=== PATIENT | male | born 1960 | race Caucasian/White ===

== ENCOUNTER 2016-09-28 13:40 | Inpatient (IN) | payer OTHER ==
[~2016-09-28] VITALS: Ht 182.9 cm; Wt 81.6 kg
[~2016-09-28 13:40] MED LIST: ACETAMINOPHEN120 MG ORAL; ATIVAN1 MG ORAL; CATAPRES0.1 MG ORAL; FOLIC ACID1 MG ORAL; LEVOCARNITINE330 MG ORAL; MULTIVITAMINS1 EAC8 ORAL; PRILOSEC10 M1 ORAL; VITAMIN B-1100 MG ORAL; ZYPREXA2.5 MG ORAL
[2016-09-28] MEDS ORDERED: LORazepam Inj 2mg/ml 1ml IM ONE (14:00)
[2016-09-28] MEDS ORDERED: Haloperidol 5mg/ml Inj IM ONE ×2 (14:00→16:30)
[2016-09-28 14:23] LABS: APPEARANCE,URINE CLEAR; KETONES,URINE 2+ (NEGATIVE); LEUKOCYTE ESTERASE ,URINE NEGATIVE (NEGATIVE); NITRITE,URINE NEGATIVE (NEGATIVE); PH,URINE 6 (4.5-8.0); PROTEIN,URINE 3+ (NEGATIVE); UROBILINOGEN,URINE 1 MG/DL (0.0-1.0)
--- NOTE | 2016-09-28 14:26 | Emergency Room Report ---
History of Present Illness General Chief Complaint: Altered Mental Status Source: Medical Record, EMS Present Illness HPI Patient presents with altered mental status. She's agitated and violent at this nursing facility. His history of schizophrenia and depression. There is no evidence of trauma. It's unknown whether he had a seizure before presenting here. Patient admitted in March 2016. D/C 03/31 with these diagnoses: (NB - lactate was elevated at that time also) FINAL DIAGNOSES: 1. Chronic psychiatric disorder, now presenting with catatonic syndrome. 2. Possible intracranial bleed. 3. Lactic acidosis, possible sepsis. 4. Enteritis. 5. Hypertension. 6. History of alcohol abuse. 7. Old left frontoparietal lesion, probably stroke. Allergies: Coded Allergies: No Known Allergies (Unverified , 03/30/16) Patient History Past Medical History: see triage record [facility] Nursing Documentation: PMH: Agreed, PSxH: Agreed Nursing Documentation-PMH Past Medical History: No History, Except For Hx Cardiac Problems: Yes - cardiomegaly Hx Hypertension: Yes Hx Diabetes: Yes Hx Cancer: No Hx Gastrointestinal Problems: Yes - GERD History Of Psychiatric Problem: Yes - schizophrenia anxiety deprssivon Hx Neurological Problems: No Physical Exam Vital Signs Date Time Temp Pulse Resp B/P Pulse Ox O2 Delivery O2 Flow Rate FiO2 09/28/16 13:31 140 24 210/130 99 Room Air Sp02 EP Interpretation: reviewed, normal General Appearance: no apparent distress, non-toxic, mild distress, lethargic, Chronically Ill Head: normocephalic, atraumatic Eyes: bilateral eye PERRL, bilateral eye normal inspection ENT: dry mucus membranes Neck: supple, no bony tend Respiratory: chest non-tender, lungs clear, normal breath sounds Cardiovascular #1: tachycardia Cardiovascular #2: 2+ radial (R) Gastrointestinal: non tender, abnormal bowel sounds - decreased, distended Musculoskeletal: back normal, normal range of motion, pelvis stable Neurologic: motor strength/tone normal, sensory intact, no Babinski, other - screams out on occasion - disoriented Psychiatric: other Skin: other - punctate erythematous lesoins extrem and trunk Medical Decision Making Diagnostic Impression: Primary Impression: Altered level of consciousness Additional Impressions: Possibe new onset seizure Schizophrenia Qualified Codes: F20.9 - Schizophrenia, unspecified Scabies ER Course Patient with possible seizure with ALOC. DDx: seizure, electrolyte abnormality , CVA, bleed, exacerbation of schizophrenia with psychosis. Emergent evaluation with labs, EKG, CXR, CT head. Treatment with ativan and haldol needed as patient requiring restraints as combative. Treated for scabies. Elevated lactic acid. Will hydrate. Lends evidence of possible seizure. Keppra started. Improved after initial dose of Haldol and ativan. Ativan repeated to obtain CT. Had to repeat haldol due to agitation. L frontoparietal infarct = old. No bleed. As no fever and normal WBC, not starting antibiotics (lactate felt related to seizure). Blood pressure improved without direct treatment. Admit tele Dr. Amato. Laboratory Tests Test 09/28/16 14:14 09/28/16 14:15 White Blood Count 6.8 K/UL (4.8-10.8) Red Blood Count 5.43 M/UL (4.70-6.10) Hemoglobin 16.9 G/DL (14.2-18.0) Hematocrit 49.3 % (42.0-52.0) Mean Corpuscular Volume 91 FL (80-99) Mean Corpuscular Hemoglobin 31.1 PG (27.0-31.0) H Mean Corpuscular Hemoglobin Concent 34.2 G/DL (32.0-36.0) Red Cell Distribution Width 12.7 % (11.6-14.8) Platelet Count 162 K/UL (150-450) Mean Platelet Volume 7.1 FL (6.5-10.1) Neutrophils (%) (Auto) 70.1 % (45.0-75.0) Lymphocytes (%) (Auto) 17.8 % (20.0-45.0) L Monocytes (%) (Auto) 7.0 % (1.0-10.0) Eosinophils (%) (Auto) 3.8 % (0.0-3.0) H Basophils (%) (Auto) 1.3 % (0.0-2.0) Sodium Level 139 mEQ/L (135-145) Potassium Level 4.1 mEQ/L (3.4-4.9) Chloride Level 98 mEQ/L (98-107) Carbon Dioxide Level 14 mEQ/L (20-30) L Anion Gap 27 (5-15) H Blood Urea Nitrogen 17 mg/dL (7-23) Creatinine 1.2 mg/dL (0.7-1.2) Estimate Glomerular Filtration Rate > 60 mL/min (>60) Glucose Level 234 mg/dL (74-106) H Lactic Acid Level 9.00 mmol/L (0.66-2.22) H Calcium Level 9.2 mg/dL (8.6-10.2) Total Bilirubin 0.8 mg/dL (0.0-1.2) Aspartate Amino Transferase (AST) 44 U/L (5-40) H Alanine Aminotransferase (ALT) 36 U/L (3-41) Alkaline Phosphatase 73 U/L (40-129) Total Creatine Kinase 174 U/L (38-174) Creatine Kinase MB 2.5 ng/mL (< 6.7) Creatine Kinase MB Relative Index 1.4 Troponin I < 0.30 ng/mL (<=0.30) Pro-B-Type Natriuretic Peptide 163 pg/mL (0-125) H Total Protein 7.8 g/dL (6.6-8.7) Albumin 4.3 g/dL (3.5-5.2) Globulin 3.5 g/dL Albumin/Globulin Ratio 1.2 (1.0-2.7) Urine Color Yellow Urine Appearance Clear Urine pH 6 (4.5-8.0) Urine Specific [place] 1.025 (1.005-1.035) Urine Protein 3+ (NEGATIVE) H Urine Glucose (UA) Negative (NEGATIVE) Urine Ketones 2+ (NEGATIVE) H Urine Occult Blood 3+ (NEGATIVE) H Urine Nitrite Negative (NEGATIVE) Urine Bilirubin Negative (NEGATIVE) Urine Urobilinogen 1 MG/DL (0.0-1.0) H Urine Leukocyte Esterase Negative (NEGATIVE) Urine RBC 2-4 /HPF (0 - 0) H Urine WBC 0-2 /HPF (0 - 0) Urine Squamous Epithelial Cells Occasional /LPF Urine Bacteria Few /HPF (NONE) Urine Hyaline Casts 0-2 /LPF (NONE) H Urine Mucus Few /LPF (NONE/OCC) H EKG Diagnostic Results Rate: tachycardiac ST Segments: no acute changes Rhythm Strip Diag. Results EP Interpretation: yes Rhythm: no PVC's, no ectopy, other - st Chest X-Ray Diagnostic Results EP Interpretation: Yes Findings: no consolidation, no effusion, no pneumothorax, no acute cardiopulmonary disease, other - rotated film Number of Views: 1 CT/MRI/US Diagnostic Results CT/MRI/US Diagnostic Results : Imaging Test Ordered: head Impression L frontoparietal old infarct Last Vital Signs Date Time Temp Pulse Resp B/P Pulse Ox O2 Delivery O2 Flow Rate FiO2 09/28/16 14:41 97.6 111 16 146/92 99 Room Air Status: improved Disposition: ADMITTED INPATIENT Condition: Serious Referrals: KARL ST (PCP) Justen Otto M.D. Sep 28, 2016 14:25
[2016-09-28 14:36] LABS: BACTERIA,URINE FEW /HPF; HYALINE CASTS, URINE 0-2 /LPF; MUCUS,URINE FEW /LPF (NONE/OCC); SQUAMOUS EPITHELIAL CELL,UR OCCASIONAL /LPF (NONE/OCC); WBC,URINE 0-2 /HPF (0 - 0)
[2016-09-28 14:41] VITALS: BP 146/92
[2016-09-28 14:49] LABS: BASOPHILS % (AUTO) 1.3 % (0.0-2.0); EOSINOPHILS % (AUTO) 3.8 % (0.0-3.0); LYMPHOCYTES % (AUTO) 17.8 % (20.0-45.0); MEAN CORPUSCULAR HEMOGLOBIN 31.1 PG (27.0-31.0); MEAN CORPUSCULAR HGB CONC 34.2 G/DL (32.0-36.0); MEAN CORPUSCULAR VOLUME 91 FL (80-99); MEAN PLATELET VOLUME 7.1 FL (6.5-10.1); NEUTROPHILS % (AUTO) 70.1 % (45.0-75.0); PLATELET COUNT 162 K/UL (150-450); RED BLOOD COUNT 5.43 M/UL (4.70-6.10); RED CELL DISTRIBUTION WIDTH 12.7 % (11.6-14.8); WHITE BLOOD COUNT 6.8 K/UL (4.8-10.8)
[2016-09-28 15:07] LABS: TROPONIN I < 0.30 ng/mL (<=0.30)
--- NOTE | 2016-09-28 15:09 | Diagnostic Imaging Report ---
Indication: Chest Pain Comparison: 03/30/16 A single view chest radiograph was obtained. Findings: No infiltrates are seen. Lungs are low in volume. Heart is enlarged. Bones are osteopenic. Impression: No acute disease
[2016-09-28 15:10] LABS: ALANINE AMINOTRANSFERASE 36 U/L (3-41); ALBUMIN/GLOBULIN RATIO 1.2 (1.0-2.7); ANION GAP 27 (5-15); ASPARTATE AMINO TRANSFERASE 44 U/L (5-40); CALCIUM 9.2 mg/dL (8.6-10.2); CARBON DIOXIDE 14 mEQ/L (20-30); CHLORIDE 98 mEQ/L (98-107); CREATININE 1.2 mg/dL (0.7-1.2); GLOMERULAR FILTRATION RATE > 60 mL/min (>60); HEMOLYSIS 52; POTASSIUM 4.1 mEQ/L (3.4-4.9); SODIUM 139 mEQ/L (135-145); TOTAL PROTEIN 7.8 g/dL (6.6-8.7)
[2016-09-28] MEDS ORDERED: LORazepam Inj 2mg/ml 1ml IV ONE (15:15)
[2016-09-28] MEDS ORDERED: levETIRAcetam 500 MG in D5W 110 ML IVPB ONE (15:15)
[2016-09-28 15:20] LABS: CKMB 2.5 ng/mL (< 6.7)
[2016-09-28 15:27] LABS: REFLEX LACTIC ACID YES OR NO YES
[2016-09-28] MEDS ORDERED: levETIRAcetam 500mg vial IV ONE (16:06)
--- NOTE | 2016-09-28 16:54 | Diagnostic Imaging Report ---
Indication: Altered mental status Technique: Contiguous 5 mm thick transaxial imaging of the head obtained in a Siemens Sensation [address] scanner. Soft tissue and bone windows generated. Total Dose length Product (DLP): [address] Dose Index Volume (CTDIvol): 70.38 mGy Comparison: 03-31-16 Findings: Motion artifact limits evaluation. There is encephalomalacia in the left frontal lobe and left external capsule/temporal lobe. This was noted previously and appears unchanged and is consistent with old infarct. There is moderate prominence of the ventricles, basal cisterns, and cerebral sulci consistent with atrophy. Moderate, nonspecific, white matter hypoattenuation is noted throughout the brain consistent with chronic small vessel disease. There is no midline shift, edema, acute hemorrhage, mass effect, or abnormal extra-axial fluid collections. Bones and extra osseous soft tissues are unremarkable. Impression: Significantly limited study due to motion. Old left frontal and temporal region infarcts. No acute intracranial bleed, mass effect or edema. Moderate atrophy of the brain. Evidence of chronic small vessel disease involving white matter tracts. The CT scanner at [facility] is accredited by the [employer] and the scans are performed using protocols designed to limit radiation exposure to as low as reasonably achievable to attain images of sufficient resolution adequate for diagnostic evaluation.
[2016-09-28 17:54] VITALS: BP 156/87
[2016-09-28 20:00] VITALS: BP 148/68
[2016-09-28] MEDS ORDERED: LORazepam Inj 2mg/ml 1ml IV PRN (22:45)
[2016-09-28] MEDS ORDERED: Zolpidem 5mg tab ORAL PRN (22:45)
[2016-09-28] MEDS ORDERED: Miralax 17gm pkt ORAL PRN (22:45)
[2016-09-28] MEDS ORDERED: Mylanta II UD 30ml ORAL PRN (22:45)
[2016-09-28] MEDS ORDERED: Morphine Sulfate 2mg/ml Inj IVP PRN (22:45)
[2016-09-29] MEDS ORDERED: LORazepam Inj 2mg/ml 1ml IV PRN (00:30)
[2016-09-29 02:02] VITALS: BP 169/82
[2016-09-29 02:30] VITALS: BP 152/80
[2016-09-29 07:52] VITALS: BP 127/91
[2016-09-29 08:39] LABS: BASOPHILS % (AUTO) 0.9 % (0.0-2.0); EOSINOPHILS % (AUTO) 1.6 % (0.0-3.0); LYMPHOCYTES % (AUTO) 12.6 % (20.0-45.0); MEAN CORPUSCULAR HEMOGLOBIN 31.3 PG (27.0-31.0); MEAN CORPUSCULAR HGB CONC 34.4 G/DL (32.0-36.0); MEAN CORPUSCULAR VOLUME 91 FL (80-99); MEAN PLATELET VOLUME 7.4 FL (6.5-10.1); MONOCYTES % (AUTO) 10.8 % (1.0-10.0); NEUTROPHILS % (AUTO) 74.2 % (45.0-75.0); PLATELET COUNT 129 K/UL (150-450); RED BLOOD COUNT 5.18 M/UL (4.70-6.10); RED CELL DISTRIBUTION WIDTH 12.5 % (11.6-14.8); WHITE BLOOD COUNT 7.1 K/UL (4.8-10.8)
[2016-09-29] MEDS ORDERED: Thiamine 100mg tab ORAL SCH (09:00)
[2016-09-29] MEDS ORDERED: OLANZapine 2.5mg tab ORAL SCH (09:00)
[2016-09-29] MEDS: levOCARNitine 330mg tab ORAL SCH ×3 (09:13→17:37)
[2016-09-29] MEDS: Heparin 5000 units/ml inj SUBQ SCH ×2 (09:13→21:00)
[2016-09-29 09:14] LABS: ALANINE AMINOTRANSFERASE 34 U/L (3-41); ALBUMIN/GLOBULIN RATIO 1.1 (1.0-2.7); ANION GAP 16 (5-15); ASPARTATE AMINO TRANSFERASE 38 U/L (5-40); CALCIUM 8.7 mg/dL (8.6-10.2); CARBON DIOXIDE 25 mEQ/L (20-30); CHLORIDE 102 mEQ/L (98-107); CREATININE 0.8 mg/dL (0.7-1.2); GLOMERULAR FILTRATION RATE > 60 mL/min (>60); HEMOLYSIS 7; POTASSIUM 3.9 mEQ/L (3.4-4.9); SODIUM 143 mEQ/L (135-145); TOTAL PROTEIN 7.2 g/dL (6.6-8.7)
[2016-09-29 09:40] LABS: BILIRUBIN,DIRECT 0.3 mg/dL (0.1-0.3)
[2016-09-29 11:33] VITALS: BP 103/70
--- NOTE | 2016-09-29 11:52 | Neurology Progress Note ---
Interim History Interim History ROS Limited/Unobtainable: No Objective Physical Exam Last Vital Signs Date Time Temp Pulse Resp B/P Pulse Ox O2 Delivery O2 Flow Rate FiO2 09/29/16 11:33 96.4 66 17 103/70 98 Room Air Laboratory Tests Test 09/28/16 14:14 09/28/16 14:15 09/28/16 18:17 09/29/16 08:02 White Blood Count 6.8 K/UL (4.8-10.8) 7.1 K/UL (4.8-10.8) Red Blood Count 5.43 M/UL (4.70-6.10) 5.18 M/UL (4.70-6.10) Hemoglobin 16.9 G/DL (14.2-18.0) 16.2 G/DL (14.2-18.0) Hematocrit 49.3 % (42.0-52.0) 47.1 % (42.0-52.0) Mean Corpuscular Volume 91 FL (80-99) 91 FL (80-99) Mean Corpuscular Hemoglobin 31.1 PG (27.0-31.0) H 31.3 PG (27.0-31.0) H Mean Corpuscular Hemoglobin Concent 34.2 G/DL (32.0-36.0) 34.4 G/DL (32.0-36.0) Red Cell Distribution Width 12.7 % (11.6-14.8) 12.5 % (11.6-14.8) Platelet Count 162 K/UL (150-450) 129 K/UL (150-450) L Mean Platelet Volume 7.1 FL (6.5-10.1) 7.4 FL (6.5-10.1) Neutrophils (%) (Auto) 70.1 % (45.0-75.0) 74.2 % (45.0-75.0) Lymphocytes (%) (Auto) 17.8 % (20.0-45.0) L 12.6 % (20.0-45.0) L Monocytes (%) (Auto) 7.0 % (1.0-10.0) 10.8 % (1.0-10.0) H Eosinophils (%) (Auto) 3.8 % (0.0-3.0) H 1.6 % (0.0-3.0) Basophils (%) (Auto) 1.3 % (0.0-2.0) 0.9 % (0.0-2.0) Sodium Level 139 mEQ/L (135-145) 143 mEQ/L (135-145) Potassium Level 4.1 mEQ/L (3.4-4.9) 3.9 mEQ/L (3.4-4.9) Chloride Level 98 mEQ/L (98-107) 102 mEQ/L (98-107) Carbon Dioxide Level 14 mEQ/L (20-30) L 25 mEQ/L (20-30) Anion Gap 27 (5-15) H 16 (5-15) H Blood Urea Nitrogen 17 mg/dL (7-23) 7 mg/dL (7-23) Creatinine 1.2 mg/dL (0.7-1.2) 0.8 mg/dL (0.7-1.2) Estimat Glomerular Filtration Rate > 60 mL/min (>60) > 60 mL/min (>60) Glucose Level 234 mg/dL (74-106) H 118 mg/dL (74-106) #H Lactic Acid Level 9.00 mmol/L (0.66-2.22) H 2.30 mmol/L (0.66-2.22) H Calcium Level 9.2 mg/dL (8.6-10.2) 8.7 mg/dL (8.6-10.2) Total Bilirubin 0.8 mg/dL (0.0-1.2) 1.3 mg/dL (0.0-1.2) H Aspartate Amino Transf (AST/SGOT) 44 U/L (5-40) H 38 U/L (5-40) Alanine Aminotransferase (ALT/SGPT) 36 U/L (3-41) 34 U/L (3-41) Alkaline Phosphatase 73 U/L (40-129) 60 U/L (40-129) Total Creatine Kinase 174 U/L (38-174) Creatine Kinase MB 2.5 ng/mL (< 6.7) Creatine Kinase MB Relative Index 1.4 Troponin I < 0.30 ng/mL (<=0.30) Pro-B-Type Natriuretic Peptide 163 pg/mL (0-125) H Total Protein 7.8 g/dL (6.6-8.7) 7.2 g/dL (6.6-8.7) Albumin 4.3 g/dL (3.5-5.2) 3.9 g/dL (3.5-5.2) Globulin 3.5 g/dL 3.3 g/dL Albumin/Globulin Ratio 1.2 (1.0-2.7) 1.1 (1.0-2.7) Urine Color Yellow Urine Appearance Clear Urine pH 6 (4.5-8.0) Urine Specific [place] 1.025 (1.005-1.035) Urine Protein 3+ (NEGATIVE) H Urine Glucose (UA) Negative (NEGATIVE) Urine Ketones 2+ (NEGATIVE) H Urine Occult Blood 3+ (NEGATIVE) H Urine Nitrite Negative (NEGATIVE) Urine Bilirubin Negative (NEGATIVE) Urine Urobilinogen 1 MG/DL (0.0-1.0) H Urine Leukocyte Esterase Negative (NEGATIVE) Urine RBC 2-4 /HPF (0 - 0) H Urine WBC 0-2 /HPF (0 - 0) Urine Squamous Epithelial Cells Occasional /LPF Urine Bacteria Few /HPF (NONE) Urine Hyaline Casts 0-2 /LPF (NONE) H Urine Mucus Few /LPF (NONE/OCC) H Direct Bilirubin 0.3 mg/dL (0.1-0.3) Impression/Recommendations Problems: (1) Hypertensive urgency (2) r/o seizure disorder (3) s/p multiple hemorrhagic strokes, 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
[2016-09-29] MEDS ORDERED: OLANZapine 2.5mg tab ORAL PRN (11:55)
[2016-09-29 13:09] LABS: BILIRUBIN,DIRECT 0.4 mg/dL (0.1-0.3); CHOLESTEROL/HDL RATIO 2.1 (3.3-4.4); TOTAL PROTEIN 6.7 g/dL (6.6-8.7)
--- NOTE | 2016-09-29 13:45 | History and Physical ---
History of Present Illness General Date patient seen: Sep 29, 2016 Reason for Hospitalization: Altered Mental Status Present Illness HPI 56 year old male with psychiatric disorder, old subdural hematoma, alf resident, brought in by paramedics for ALOC. Pt was more lethargic. Allergies: Coded Allergies: No Known Allergies (Unverified , 03/30/16) Medication History Scheduled Clonidine Hcl* (Catapres*), 0.1 MG ORAL EVERY 6 HOURS, (Reported) Folic Acid* (Folic Acid*), 1 MG ORAL DAILY, (Reported) Levocarnitine (Levocarnitine), 990 MG ORAL THREE TIMES A DAY, (Reported) Lorazepam* (Ativan*), 1 MG ORAL BEDTIME, (Reported) Multivitamin With Minerals (Multivitamins With Minerals*), 1 TAB ORAL DAILY, ( Reported) Olanzapine* (Zyprexa*), 2.5 MG ORAL DAILY, (Reported) Omeprazole Magnesium (Prilosec), 20 MG ORAL DAILY, (Reported) Thiamine Hcl* (Vitamin B-1*), 100 MG ORAL DAILY, (Reported) Scheduled PRN Acetaminophen* (Tylenol*), 650 MG ORAL Q4H PRN for Mild Pain/Temp > 100.5, ( Reported) Patient History Healthcare decision maker Resuscitation status Full Code Advanced Directive on File Past Medical/Surgical History Past Medical/Surgical History: (1) Schizophrenia (2) SDH (subdural hematoma) Review of Systems All Other Systems: negative except mentioned in HPI Physical Exam General Appearance: WD/WN, no apparent distress, lethargic Lines, tubes and drains: central line HEENT: normocephalic, atraumatic Neck: non-tender, normal alignment Respiratory/Chest: chest wall non-tender, lungs clear Cardiovascular/Chest: normal peripheral pulses, normal rate Abdomen: normal bowel sounds Last 24 Hour Vital Signs Date Time Temp Pulse Resp B/P Pulse Ox O2 Delivery O2 Flow Rate FiO2 09/29/16 11:33 96.4 66 17 103/70 98 Room Air 09/29/16 09:00 78 09/29/16 07:52 96.6 83 18 127/91 98 Room Air 09/29/16 06:08 168/83 09/29/16 04:00 77 09/29/16 02:30 152/80 09/29/16 02:02 97.8 79 20 169/82 95 Room Air 09/29/16 00:25 169/82 09/29/16 00:00 87 09/28/16 20:00 97.0 86 16 148/68 98 Room Air 09/28/16 18:40 97.8 91 15 156/87 99 Room Air 09/28/16 17:54 97.8 91 15 156/87 99 Room Air 09/28/16 14:41 97.6 111 16 146/92 99 Room Air Intake and Output 09/28/16 09/29/16 19:00 07:00 Intake Total 2515 ml 0 ml Output Total 1200 ml Balance 2515 ml -1200 ml Intake Oral 0 ml IV Total 1515 ml Other 1000 ml Output Urine Total 1200 ml Laboratory Tests Test 09/28/16 14:14 09/28/16 14:15 09/28/16 18:17 09/29/16 08:02 White Blood Count 6.8 K/UL (4.8-10.8) 7.1 K/UL (4.8-10.8) Red Blood Count 5.43 M/UL (4.70-6.10) 5.18 M/UL (4.70-6.10) Hemoglobin 16.9 G/DL (14.2-18.0) 16.2 G/DL (14.2-18.0) Hematocrit 49.3 % (42.0-52.0) 47.1 % (42.0-52.0) Mean Corpuscular Volume 91 FL (80-99) 91 FL (80-99) Mean Corpuscular Hemoglobin 31.1 PG (27.0-31.0) H 31.3 PG (27.0-31.0) H Mean Corpuscular Hemoglobin Concent 34.2 G/DL (32.0-36.0) 34.4 G/DL (32.0-36.0) Red Cell Distribution Width 12.7 % (11.6-14.8) 12.5 % (11.6-14.8) Platelet Count 162 K/UL (150-450) 129 K/UL (150-450) L Mean Platelet Volume 7.1 FL (6.5-10.1) 7.4 FL (6.5-10.1) Neutrophils (%) (Auto) 70.1 % (45.0-75.0) 74.2 % (45.0-75.0) Lymphocytes (%) (Auto) 17.8 % (20.0-45.0) L 12.6 % (20.0-45.0) L Monocytes (%) (Auto) 7.0 % (1.0-10.0) 10.8 % (1.0-10.0) H Eosinophils (%) (Auto) 3.8 % (0.0-3.0) H 1.6 % (0.0-3.0) Basophils (%) (Auto) 1.3 % (0.0-2.0) 0.9 % (0.0-2.0) Sodium Level 139 mEQ/L (135-145) 143 mEQ/L (135-145) Potassium Level 4.1 mEQ/L (3.4-4.9) 3.9 mEQ/L (3.4-4.9) Chloride Level 98 mEQ/L (98-107) 102 mEQ/L (98-107) Carbon Dioxide Level 14 mEQ/L (20-30) L 25 mEQ/L (20-30) Anion Gap 27 (5-15) H 16 (5-15) H Blood Urea Nitrogen 17 mg/dL (7-23) 7 mg/dL (7-23) Creatinine 1.2 mg/dL (0.7-1.2) 0.8 mg/dL (0.7-1.2) Estimat Glomerular Filtration Rate > 60 mL/min (>60) > 60 mL/min (>60) Glucose Level 234 mg/dL (74-106) H 118 mg/dL (74-106) #H Lactic Acid Level 9.00 mmol/L (0.66-2.22) H 2.30 mmol/L (0.66-2.22) H Calcium Level 9.2 mg/dL (8.6-10.2) 8.7 mg/dL (8.6-10.2) Total Bilirubin 0.8 mg/dL (0.0-1.2) 1.3 mg/dL (0.0-1.2) H Aspartate Amino Transf (AST/SGOT) 44 U/L (5-40) H 38 U/L (5-40) Alanine Aminotransferase (ALT/SGPT) 36 U/L (3-41) 34 U/L (3-41) Alkaline Phosphatase 73 U/L (40-129) 60 U/L (40-129) Total Creatine Kinase 174 U/L (38-174) Creatine Kinase MB 2.5 ng/mL (< 6.7) Creatine Kinase MB Relative Index 1.4 Troponin I < 0.30 ng/mL (<=0.30) Pro-B-Type Natriuretic Peptide 163 pg/mL (0-125) H Total Protein 7.8 g/dL (6.6-8.7) 7.2 g/dL (6.6-8.7) Albumin 4.3 g/dL (3.5-5.2) 3.9 g/dL (3.5-5.2) Globulin 3.5 g/dL 3.3 g/dL Albumin/Globulin Ratio 1.2 (1.0-2.7) 1.1 (1.0-2.7) Urine Color Yellow Urine Appearance Clear Urine pH 6 (4.5-8.0) Urine Specific [place] 1.025 (1.005-1.035) Urine Protein 3+ (NEGATIVE) H Urine Glucose (UA) Negative (NEGATIVE) Urine Ketones 2+ (NEGATIVE) H Urine Occult Blood 3+ (NEGATIVE) H Urine Nitrite Negative (NEGATIVE) Urine Bilirubin Negative (NEGATIVE) Urine Urobilinogen 1 MG/DL (0.0-1.0) H Urine Leukocyte Esterase Negative (NEGATIVE) Urine RBC 2-4 /HPF (0 - 0) H Urine WBC 0-2 /HPF (0 - 0) Urine Squamous Epithelial Cells Occasional /LPF Urine Bacteria Few /HPF (NONE) Urine Hyaline Casts 0-2 /LPF (NONE) H Urine Mucus Few /LPF (NONE/OCC) H Direct Bilirubin 0.3 mg/dL (0.1-0.3) Test 09/29/16 12:00 Total Bilirubin 1.3 mg/dL (0.0-1.2) H Direct Bilirubin 0.4 mg/dL (0.1-0.3) H Aspartate Amino Transf (AST/SGOT) 35 U/L (5-40) Alanine Aminotransferase (ALT/SGPT) 32 U/L (3-41) Alkaline Phosphatase 59 U/L (40-129) Ammonia 22 umol/L (16-60) Total Protein 6.7 g/dL (6.6-8.7) Albumin 4.0 g/dL (3.5-5.2) Triglycerides Level 37 mg/dL (< 150) Cholesterol Level 119 mg/dL (< 200) LDL Cholesterol 55 mg/dL (60-99) L HDL Cholesterol 57 mg/dL (> 60) Cholesterol/HDL Ratio 2.1 (3.3-4.4) L Vitamin B12 Level 406 pg/mL (211-946) Height (Feet): 6 Weight (Pounds): 180 Medications Current Medications Medications (Trade) Dose Ordered Sig/Lennie Route PRN Reason Start Time Stop Time Status Last Admin Dose Admin Acetaminophen (Tylenol) 650 mg Q4H PRN ORAL fever 09/28/16 22:45 10/28/16 22:44 Al Hydroxide/Mg Hydroxide (Mylanta II) 30 ml Q6H PRN ORAL dyspepsia 09/28/16 22:45 10/28/16 22:44 Clonidine HCl (Catapres) 0.1 mg EVERY 6 HOURS ORAL 09/29/16 00:00 10/29/16 00:00 09/29/16 06:08 Dextrose (Dextrose 50%) STAT PRN IV Hypoglycemia 09/28/16 22:45 10/28/16 22:44 Folic Acid (Folate) 1 mg DAILY ORAL 09/29/16 09:00 10/29/16 08:59 09/29/16 09:14 Heparin Sodium (Porcine) (Heparin 5000 units/ml) 5,000 units EVERY 12 HOURS SUBQ 09/29/16 09:00 10/29/16 08:59 09/29/16 09:13 Levetiracetam (Keppra) 500 mg Q12HR ORAL 09/29/16 12:30 10/29/16 12:29 09/29/16 12:39 Levocarnitine (L-Carnitine) 990 mg THREE TIMES A DAY ORAL 09/29/16 09:00 10/29/16 08:59 09/29/16 12:39 Lorazepam (Ativan 2mg/ml 1ml) 2 mg EVERY HOUR PRN IV seizures 09/28/16 22:45 10/05/16 22:44 Lorazepam (Ativan 2mg/ml 1ml) 2 mg Q4H PRN IV Agitation 09/29/16 00:30 10/06/16 00:29 09/29/16 01:18 Morphine Sulfate (Morphine Sulfate) 1 mg Q4H PRN IVP For Pain 09/28/16 22:45 10/05/16 22:44 Olanzapine (ZyPREXA) 2.5 mg DAILY PRN ORAL Agitation 09/29/16 11:55 10/29/16 11:54 Ondansetron HCl (Zofran) 4 mg Q6H PRN IVP Nausea & Vomiting 09/28/16 22:45 10/28/16 22:44 Polyethylene Glycol (Miralax) 17 gm HSPRN PRN ORAL Constipation 09/28/16 22:45 10/28/16 22:44 Zolpidem Tartrate (Ambien) 5 mg HSPRN PRN ORAL Insomnia 09/28/16 22:45 10/28/16 22:44 09/29/16 00:25 Assessment/Plan Problem List: (1) Hypertensive urgency ICD Codes: I16.0 - Hypertensive urgency SNOMED: 622459365 (2) Altered level of consciousness ICD Codes: R40.4 - Transient alteration of awareness SNOMED: 3068363 (3) SDH (subdural hematoma) ICD Codes: I62.00 - Nontraumatic subdural hemorrhage, unspecified SNOMED: 91086047 (4) Schizophrenia ICD Codes: F20.9 - Schizophrenia, unspecified SNOMED: 40853172 Assessment/Plan monitor bp neuro evaluation adjust psych meds. pts sister, DPOA, wants DNR. CHRISTO ARMENDARIZ Sep 29, 2016 13:45
--- NOTE | 2016-09-29 13:51 | Cardiology Report ---
APPROVED REPORT EKG Measurement Heart [id number] Sinus tachycardia Septal infarct, age undetermined Abnormal ECG
[2016-09-29 16:00] VITALS: BP 108/70
[2016-09-29] MEDS: NovoLOG Insulin Flexpen SUBQ SCH ×2 (16:30→21:00)
[2016-09-29 20:00] VITALS: BP 110/72
--- NOTE | 2016-09-29 23:29 | Consultation ---
DATE OF CONSULTATION: 09/29/2016 NEUROLOGICAL CONSULTATION CONSULTING PHYSICIAN: Malcolm Wayne M.D. REQUESTING PHYSICIAN: Deni Amato M.D. HISTORY OF PRESENT ILLNESS: The patient is a 56 years old man, resident of a nursing facility, was seen in neurological consultation to evaluate changes in mental status. The patient has reportedly developed increased agitation, displaying violent behavior, at which point, paramedics were called to the scene, describing with shaking, but coming down after loading into ambulance. He was , hypertensive with no evidence of trauma noted. His vital signs included blood pressure 218/139, heart rate of 130, respirations 18, and blood sugar was 170. Repeat study, blood pressure down to 200/100 and heart rate of 147. Upon arrival to the emergency [place], he remained hypertensive and tachycardic and treatment started. Blood pressure back to normal with 146/92. The patient's laboratory studies included CBC study with 3+ protein, 2+ ketones. Chemistry panel was abnormal with anion gap of 27, blood sugar 234, elevated lactic acid 9.0, and BNP 163. CBC study were unremarkable. Imaging studies included a chest x-ray revealed no acute disease, but CT of the brain revealed old left frontal and temporal region infarct, moderate prominence of ventricles consistent with atrophy, and moderate white matter hypoattenuation. This was compared with the previous study from 03/31/2016 with no changes noted. Following admission to present, the patient described as very lethargic and nonresponsive. Most recent assessment at this hospital was in March of 2016, when patient was also admitted with high blood pressure out of control and tachycardia. The patient described being in catatonic state. He was rehydrated. MRI of the brain was obtained, revealing chronic encephalomalacia, parenchymal volume loss in the left hemisphere with evidence of hemosiderin deposits indicating prior hemorrhagic component. There is no evidence of subdural hematoma or any evidence of acute intracranial pathology. PAST MEDICAL HISTORY: The patient has a history of chronic psychiatric disorder, schizophrenia, and history of alcohol abuse. MEDICATIONS: The patient's current treatment prior to admission included Tylenol, clonidine, folate, Ativan 1 mg at bedtime, Zyprexa 2.5 mg daily, omeprazole, and thiamine. ALLERGIES: None reported. SOCIAL HISTORY: Resident of nursing facility. FAMILY HISTORY: Noncontributory. REVIEW OF SYMPTOMS: Unable to obtain due to the patient's status. PHYSICAL EXAMINATION: GENERAL: This is a well-developed, well-nourished, somewhat ill-appearing man, who was found to be lying in bed, asleep. VITAL SIGNS: Included blood pressure 127/91, temperature 96.8, and heart rate of 83. HEENT: Head, normocephalic. There is no evidence of trauma. SKIN: Revealed disseminated rash resembling scabies. MUSCULOSKELETAL: Unremarkable. Peripheral pulses 1+ and symmetric. MENTAL STATUS: The patient is lethargic, would not wake up unless vigorously stimulated, at which point he would open eyes, but would not follow commands and remained nonverbal. CRANIAL NERVE II: Pupils both responding to light and accommodation. Extraocular movements intact. No nystagmus. CRANIAL NERVE V: Normal corneal responses. CRANIAL NERVE VII: No facial asymmetry. CRANIAL NERVE VIII: Probable normal. CRANIAL NERVE IX THROUGH XII: Reduced gag response. MOTOR EXAMINATION: Diffuse rigidity with strength 5/5 in all limbs. Deep tendon reflexes 1+ and symmetric. Plantar responses flexor. SENSORY EXAMINATION: No response to pin stimulation. Gait not tested. IMPRESSION: 1. This is a 56-year-old man, admitted with hypertensive urgency, presenting with a persistent encephalopathy. 2. Status post multiple predominantly left hemispheric strokes some with hemorrhagic component, old. 3. Chronic psychiatric disorder. 4. Lactic acidosis, rule out sepsis. 5. Rash, probably scabies. DISCUSSION: 1. The patient has no lateralizing evidence, but has a persistent lethargy following admission to the hospital with evidence of hypertensive urgency. His vital signs stabilized, but the patient remained verbal and unresponsive. He has evidence of lactic acidosis. Elevated total bilirubin and AST. Underlying sepsis, hepatic dysfunction to be considered. 2. Blood and urine cultures are pending. Liver function and ammonia level ordered. B12, folate, vitamin D levels ordered. 3. Psychiatry evaluation to assist with chronic psychiatric illness management. Meanwhile, we will hold all sedating medication until fully awake. Continue with aspirin 81 mg, statins given high risk of strokes. Thank you for allowing me to see this interesting patient in neurological consultation. Malcolm Wayne M.D. DR: LONNIE JOB#: [id number] CC:
[2016-09-30] VITALS: BP 106/66
[2016-09-30 04:00] VITALS: BP 101/68
[2016-09-30] MEDS: NovoLOG Insulin Flexpen SUBQ SCH ×4 (06:30→22:01)
[2016-09-30 07:47] VITALS: BP 106/66
[2016-09-30] MEDS ORDERED: Mylanta II UD 30ml ORAL PRN (09:00)
[2016-09-30] MEDS ORDERED: Morphine Sulfate 2mg/ml Inj IVP PRN (09:00)
[2016-09-30] MEDS ORDERED: LORazepam Inj 2mg/ml 1ml IV PRN ×2 (09:00)
[2016-09-30] MEDS ORDERED: OLANZapine 2.5mg tab ORAL PRN (09:00)
[2016-09-30] MEDS: Heparin 5000 units/ml inj SUBQ SCH ×2 (09:00→21:00)
[2016-09-30] MEDS: levOCARNitine 330mg tab ORAL SCH ×3 (09:59→17:27)
[2016-09-30 12:55] VITALS: BP 110/62
[2016-09-30 15:55] VITALS: BP 108/60
--- NOTE | 2016-09-30 16:41 | Pulmonology Progress Note ---
Assessment/Plan Assessment/Plan ASSESSMENT acute encephalopathy, r/o seizure disorder HTN urgency schizophrenia hx of multiple hemorrhagic strokes, probably HTN angiopathy scabies, s/p Rx lactic acidosis PLAN OF CARE MS floor CT head c/w old CVA, no acute intracranial pathology CXR negative O2 HHN prn BP management neuro follows carotid Doppler EEG started ion Keppra ammonia level OK lipid panel stable DVT prophylaxis s/ Rx with permethrin and repeat in 7 days BS management with SS of insulin PT/OT f fall precautions swallow eval case discussed and evaluated by supervising physician Subjective Allergies: Coded Allergies: No Known Allergies (Unverified , 03/30/16) Subjective transferred to NM no seizure activity, no new weakness/deficit Objective Last 24 Hour Vital Signs Date Time Temp Pulse Resp B/P Pulse Ox O2 Delivery O2 Flow Rate FiO2 09/30/16 15:55 97.7 64 18 108/60 96 Room Air 09/30/16 12:55 97.9 62 18 110/62 96 Room Air 09/30/16 07:47 98.0 84 20 106/66 96 Room Air 09/30/16 06:00 101/68 09/30/16 04:00 98.1 56 20 101/68 95 Room Air 09/30/16 00:00 106/66 09/30/16 00:00 98.2 65 20 106/66 95 Room Air 09/29/16 20:00 74 09/29/16 20:00 97.6 75 20 110/72 96 09/29/16 17:37 115/70 Intake and Output 09/29/16 09/30/16 19:00 07:00 Intake Total 250 ml 200 ml Output Total 200 ml 200 ml Balance 50 ml 0 ml Intake Oral 250 ml 200 ml Output Urine Total 200 ml 200 ml Respiratory/Chest: lungs clear, normal breath sounds, no respiratory distress Cardiovascular: normal rate, regular rhythm Abdomen: soft, non tender, non distended Genitourinary: normal external genitalia Extremities: no edema Neurologic/Psychiatric: alert - confused, responsive but inadequate Musculoskeletal: normal muscle bulk Microbiology Date/Time Source Procedure Growth Status 09/28/16 14:24 Blood Blood Culture - Preliminary NO GROWTH AFTER 24 HOURS Resulted 09/28/16 14:14 Blood Blood Culture - Preliminary NO GROWTH AFTER 24 HOURS Resulted 09/28/16 20:30 Nasal Nares MRSA Culture - Final NO METHICILLIN RESISTANT STAPH AUREUS... Complete 09/28/16 20:30 Rectum VRE Culture - Final NO VANCOMYCIN RESISTANT ENTEROCOCCUS ... Complete Current Medications Medications (Trade) Dose Ordered Sig/Lennie Route PRN Reason Start Time Stop Time Status Last Admin Dose Admin Acetaminophen (Tylenol) 650 mg Q4H PRN ORAL fever 09/30/16 09:00 10/30/16 08:59 Al Hydroxide/Mg Hydroxide (Mylanta II) 30 ml Q6H PRN ORAL dyspepsia 09/30/16 09:00 10/30/16 08:59 Clonidine HCl (Catapres) 0.1 mg Q6H PRN ORAL SBP greater than 160 09/30/16 09:00 10/30/16 08:59 Dextrose (Dextrose 50%) STAT PRN IV Hypoglycemia 09/30/16 09:00 10/30/16 08:59 Folic Acid (Folate) 1 mg DAILY ORAL 09/30/16 09:00 10/30/16 08:59 09/30/16 09:58 Heparin Sodium (Porcine) (Heparin 5000 units/ml) 5,000 units EVERY 12 HOURS SUBQ 09/30/16 09:00 10/30/16 08:59 Insulin Aspart (NovoLOG) BEFORE MEALS AND HS SUBQ 09/30/16 11:30 10/30/16 11:29 09/30/16 14:35 Levetiracetam (Keppra) 500 mg Q12HR ORAL 09/30/16 09:00 10/30/16 08:59 09/30/16 09:58 Levocarnitine (L-Carnitine) 990 mg THREE TIMES A DAY ORAL 09/30/16 09:00 10/30/16 08:59 09/30/16 14:35 Lorazepam (Ativan 2mg/ml 1ml) 2 mg Q1H PRN IV seizures 09/30/16 09:00 10/07/16 08:59 Lorazepam (Ativan 2mg/ml 1ml) 2 mg Q4H PRN IV Agitation 09/30/16 09:00 10/07/16 08:59 Morphine Sulfate (Morphine Sulfate) 1 mg Q4H PRN IVP For Pain 09/30/16 09:00 10/07/16 08:59 Olanzapine (ZyPREXA) 2.5 mg DAILYPRN PRN ORAL Agitation 09/30/16 09:00 10/30/16 08:59 Ondansetron HCl (Zofran) 4 mg Q6H PRN IVP Nausea & Vomiting 09/30/16 09:00 10/30/16 08:59 Polyethylene Glycol (Miralax) 17 gm HSPRN PRN ORAL Constipation 09/30/16 22:45 10/30/16 22:44 Zolpidem Tartrate (Ambien) 5 mg HSPRN PRN ORAL Insomnia 09/30/16 22:45 10/30/16 22:44 Naz Sharpe NP (Vanchtein) Sep 30, 2016 16:41
[2016-09-30 20:00] VITALS: BP 141/76
[2016-09-30] MEDS ORDERED: Miralax 17gm pkt ORAL PRN (22:45)
[2016-09-30] MEDS ORDERED: Zolpidem 5mg tab ORAL PRN (22:45)
[2016-09-30] MEDS: LORazepam Inj 2mg/ml 1ml IV PRN (23:55)
[2016-10-01] VITALS: BP 131/88
[2016-10-01] MEDS: NovoLOG Insulin Flexpen SUBQ SCH ×4 (06:28→21:36)
[2016-10-01 08:00] VITALS: BP 151/97
[2016-10-01] MEDS: Heparin 5000 units/ml inj SUBQ SCH ×2 (09:00→21:38)
[2016-10-01] MEDS: levOCARNitine 330mg tab ORAL SCH ×3 (09:21→17:26)
[2016-10-01] MEDS: LORazepam Inj 2mg/ml 1ml IV PRN (10:36)
[2016-10-01 12:00] VITALS: BP 123/83
--- NOTE | 2016-10-01 13:02 | Pulmonology Progress Note ---
Assessment/Plan Assessment/Plan ASSESSMENT acute encephalopathy, r/o seizure disorder HTN urgency schizophrenia hx of multiple hemorrhagic strokes, probably HTN angiopathy scabies, s/p Rx lactic acidosis PLAN OF CARE MS floor CT head c/w old CVA, no acute intracranial pathology CXR negative O2 HHN prn BP management neuro follows carotid Doppler EEG started on Keppra ammonia level OK lipid panel stable DVT prophylaxis s/ Rx with permethrin and repeat in 7 days BS management with SS of insulin PT/OT fall precautions swallow eval DNR/DNI status - per sister DPOA case discussed and evaluated by supervising physician Subjective Allergies: Coded Allergies: No Known Allergies (Unverified , 03/30/16) Subjective no seizure activity, no new weakness/deficit Objective Last 24 Hour Vital Signs Date Time Temp Pulse Resp B/P Pulse Ox O2 Delivery O2 Flow Rate FiO2 10/01/16 12:00 97.2 78 20 123/83 93 Room Air 10/01/16 08:00 96.6 78 20 151/97 97 Room Air 10/01/16 00:00 99.1 62 18 131/88 95 Room Air 09/30/16 20:00 98.4 92 19 141/76 97 Room Air 09/30/16 15:55 97.7 64 18 108/60 96 Room Air Intake and Output 09/30/16 10/01/16 19:00 07:00 Intake Total 120 ml 480 ml Output Total 300 ml 650 ml Balance -180 ml -170 ml Intake Oral 120 ml 480 ml Output Urine Total 300 ml 650 ml Objective General: NAD, awake, alert, confused Respiratory/Chest: lungs clear, normal breath sounds, no respiratory distress Cardiovascular: normal rate, regular rhythm Abdomen: soft, non tender, non distended Genitourinary: normal external genitalia Extremities: no edema Neurologic/Psychiatric: alert - confused, responsive but inadequate Musculoskeletal: normal muscle bulk Microbiology Date/Time Source Procedure Growth Status 09/28/16 14:24 Blood Blood Culture - Preliminary NO GROWTH AFTER 48 HOURS Resulted 09/28/16 14:14 Blood Blood Culture - Preliminary NO GROWTH AFTER 48 HOURS Resulted 09/28/16 20:30 Nasal Nares MRSA Culture - Final NO METHICILLIN RESISTANT STAPH AUREUS... Complete 09/28/16 20:30 Rectum VRE Culture - Final NO VANCOMYCIN RESISTANT ENTEROCOCCUS ... Complete Current Medications Medications (Trade) Dose Ordered Sig/Lennie Route PRN Reason Start Time Stop Time Status Last Admin Dose Admin Acetaminophen (Tylenol) 650 mg Q4H PRN ORAL fever 09/30/16 09:00 10/30/16 08:59 Al Hydroxide/Mg Hydroxide (Mylanta II) 30 ml Q6H PRN ORAL dyspepsia 09/30/16 09:00 10/30/16 08:59 Clonidine HCl (Catapres) 0.1 mg Q6H PRN ORAL SBP greater than 160 09/30/16 09:00 10/30/16 08:59 Dextrose (Dextrose 50%) STAT PRN IV Hypoglycemia 09/30/16 09:00 10/30/16 08:59 Folic Acid (Folate) 1 mg DAILY ORAL 09/30/16 09:00 10/30/16 08:59 10/01/16 09:20 Heparin Sodium (Porcine) (Heparin 5000 units/ml) 5,000 units EVERY 12 HOURS SUBQ 09/30/16 09:00 10/30/16 08:59 Insulin Aspart (NovoLOG) BEFORE MEALS AND HS SUBQ 09/30/16 11:30 10/30/16 11:29 09/30/16 22:01 Levetiracetam (Keppra) 500 mg Q12HR ORAL 09/30/16 09:00 10/30/16 08:59 10/01/16 09:20 Levocarnitine (L-Carnitine) 990 mg THREE TIMES A DAY ORAL 09/30/16 09:00 10/30/16 08:59 10/01/16 09:21 Lorazepam (Ativan 2mg/ml 1ml) 2 mg Q1H PRN IV seizures 09/30/16 09:00 10/07/16 08:59 Lorazepam (Ativan 2mg/ml 1ml) 2 mg Q4H PRN IV Agitation 09/30/16 09:00 10/07/16 08:59 10/01/16 10:36 Morphine Sulfate (Morphine Sulfate) 1 mg Q4H PRN IVP For Pain 09/30/16 09:00 10/07/16 08:59 Olanzapine (ZyPREXA) 2.5 mg DAILYPRN PRN ORAL Agitation 09/30/16 09:00 10/30/16 08:59 Ondansetron HCl (Zofran) 4 mg Q6H PRN IVP Nausea & Vomiting 09/30/16 09:00 10/30/16 08:59 Polyethylene Glycol (Miralax) 17 gm HSPRN PRN ORAL Constipation 09/30/16 22:45 10/30/16 22:44 Zolpidem Tartrate (Ambien) 5 mg HSPRN PRN ORAL Insomnia 09/30/16 22:45 10/30/16 22:44 [facility]Naz NP Oct 01, 2016 13:02
[2016-10-01 15:51] VITALS: BP 133/85
[2016-10-01 20:23] VITALS: BP 153/98
[2016-10-02] VITALS: BP 146/88
[2016-10-02] MEDS: LORazepam Inj 2mg/ml 1ml IV PRN (03:29)
[2016-10-02 04:00] VITALS: BP 141/98
[2016-10-02] MEDS: NovoLOG Insulin Flexpen SUBQ SCH ×3 (06:19→18:08)
[2016-10-02 07:11] LABS: BASOPHILS % (AUTO) 1.4 % (0.0-2.0); EOSINOPHILS % (AUTO) 6.5 % (0.0-3.0); LYMPHOCYTES % (AUTO) 17.9 % (20.0-45.0); MEAN CORPUSCULAR HEMOGLOBIN 31.1 PG (27.0-31.0); MEAN CORPUSCULAR VOLUME 91 FL (80-99); MEAN PLATELET VOLUME 7.1 FL (6.5-10.1); MONOCYTES % (AUTO) 12.9 % (1.0-10.0); NEUTROPHILS % (AUTO) 61.3 % (45.0-75.0); PLATELET COUNT 132 K/UL (150-450); RED CELL DISTRIBUTION WIDTH 12.9 % (11.6-14.8); WHITE BLOOD COUNT 4.4 K/UL (4.8-10.8)
[2016-10-02 07:26] LABS: ANION GAP 12 (5-15); CARBON DIOXIDE 27 mEQ/L (20-30); CHLORIDE 104 mEQ/L (98-107); CREATININE 0.9 mg/dL (0.7-1.2); GLOMERULAR FILTRATION RATE > 60 mL/min (>60); HEMOLYSIS 10; POTASSIUM 4.8 mEQ/L (3.4-4.9); SODIUM 143 mEQ/L (135-145)
[2016-10-02] MEDS: levOCARNitine 330mg tab ORAL SCH ×3 (08:45→17:35)
[2016-10-02] MEDS: Heparin 5000 units/ml inj SUBQ SCH (09:00)
[2016-10-02 12:15] VITALS: BP 116/64
[2016-10-02 16:00] VITALS: BP 124/65
--- NOTE | 2016-10-02 16:44 | Pulmonology Progress Note ---
Assessment/Plan Problems: (1) Hypertensive urgency (2) Altered level of consciousness (3) SDH (subdural hematoma) (4) Schizophrenia Assessment/Plan improvng bp controlled dc to nursign home with same meds Subjective ROS Limited/Unobtainable: Yes Allergies: Coded Allergies: No Known Allergies (Unverified , 03/30/16) Objective Last 24 Hour Vital Signs Date Time Temp Pulse Resp B/P Pulse Ox O2 Delivery O2 Flow Rate FiO2 10/02/16 12:15 98.7 74 21 116/64 98 Room Air 10/02/16 04:00 98.1 75 20 141/98 98 Room Air 10/02/16 00:00 98.4 78 20 146/88 97 Room Air 10/01/16 20:23 97.9 77 16 153/98 98 Room Air Intake and Output 10/01/16 10/02/16 19:00 07:00 Intake Total 400 ml Output Total 400 ml 600 ml Balance 0 ml -600 ml Intake Oral 400 ml Output Urine Total 400 ml 600 ml Objective General Appearance: WD/WN HEENT: normocephalic, atraumatic Respiratory/Chest: chest wall non-tender, lungs clear Cardiovascular: normal peripheral pulses, normal rate Abdomen: normal bowel sounds, soft, non tender Genitourinary: normal external genitalia 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 Laboratory Tests 10/02/16 06:30: White Blood Count 4.4L, Red Blood Count 5.40, Hemoglobin 16.8, Hematocrit 49.4, Mean Corpuscular Volume 91, Mean Corpuscular Hemoglobin 31.1H, Mean Corpuscular Hemoglobin Concent 34.0, Red Cell Distribution Width 12.9, Platelet Count 132L, Mean Platelet Volume 7.1, Neutrophils (%) (Auto) 61.3, Lymphocytes (%) (Auto) 17.9L, Monocytes (%) (Auto) 12.9H, Eosinophils (%) (Auto) 6.5H, Basophils (%) ( Auto) 1.4, Sodium Level 143, Potassium Level 4.8, Chloride Level 104, Carbon Dioxide Level 27, Anion Gap 12, Blood Urea Nitrogen 10, Creatinine 0.9, Estimat Glomerular Filtration Rate > 60, Glucose Level 133H, Calcium Level 9.0 Current Medications Medications (Trade) Dose Ordered Sig/Lennie Route PRN Reason Start Time Stop Time Status Last Admin Dose Admin Acetaminophen (Tylenol) 650 mg Q4H PRN ORAL fever 09/30/16 09:00 10/30/16 08:59 Al Hydroxide/Mg Hydroxide (Mylanta II) 30 ml Q6H PRN ORAL dyspepsia 09/30/16 09:00 10/30/16 08:59 Clonidine HCl (Catapres) 0.1 mg Q6H PRN ORAL SBP greater than 160 09/30/16 09:00 10/30/16 08:59 Dextrose (Dextrose 50%) STAT PRN IV Hypoglycemia 09/30/16 09:00 10/30/16 08:59 Folic Acid (Folate) 1 mg DAILY ORAL 09/30/16 09:00 10/30/16 08:59 10/02/16 08:44 Heparin Sodium (Porcine) (Heparin 5000 units/ml) 5,000 units EVERY 12 HOURS SUBQ 09/30/16 09:00 10/30/16 08:59 Insulin Aspart (NovoLOG) BEFORE MEALS AND HS SUBQ 09/30/16 11:30 10/30/16 11:29 10/01/16 21:36 Levetiracetam (Keppra) 500 mg Q12HR ORAL 09/30/16 09:00 10/30/16 08:59 10/02/16 08:44 Levocarnitine (L-Carnitine) 990 mg THREE TIMES A DAY ORAL 09/30/16 09:00 10/30/16 08:59 10/02/16 13:52 Lorazepam (Ativan 2mg/ml 1ml) 2 mg Q1H PRN IV seizures 09/30/16 09:00 10/07/16 08:59 Lorazepam (Ativan 2mg/ml 1ml) 2 mg Q4H PRN IV Agitation 09/30/16 09:00 10/07/16 08:59 10/02/16 03:29 Morphine Sulfate (Morphine Sulfate) 1 mg Q4H PRN IVP For Pain 09/30/16 09:00 10/07/16 08:59 Olanzapine (ZyPREXA) 2.5 mg DAILYPRN PRN ORAL Agitation 09/30/16 09:00 10/30/16 08:59 10/01/16 17:34 Ondansetron HCl (Zofran) 4 mg Q6H PRN IVP Nausea & Vomiting 09/30/16 09:00 10/30/16 08:59 Polyethylene Glycol (Miralax) 17 gm HSPRN PRN ORAL Constipation 09/30/16 22:45 10/30/16 22:44 Zolpidem Tartrate (Ambien) 5 mg HSPRN PRN ORAL Insomnia 09/30/16 22:45 10/30/16 22:44 CHRISTO ARMENDARIZ Oct 02, 2016 16:44
--- NOTE | 2016-10-02 22:58 | Consultation ---
DATE OF CONSULTATION: 10/02/2016 HISTORY OF PRESENT ILLNESS: This is a 56-year-old male with history of multiple medical problems, including lactic acidosis, enteritis, hypertension, schizophrenia, scabies, and subdural hematoma, who has been admitted to the hospital due to altered level of consciousness. The patient has also presented with agitation, anxiety, delusions, presenting with target symptoms include anxiety, agitation, disorganized, speech and behavior. He is also having scabies and has been receiving treatment. He has presented with high blood pressure 218/139, which is being improving and has been managed. The patient also presents with impairment of concentration, memory, and attention. He was unable to provide any history due to altered mental status. PAST PSYCHIATRIC HISTORY: Diagnosed with schizophrenia and has been hospitalized several times having treated with Ativan and Zyprexa. PAST MEDICAL HISTORY: Includes hypertension, diabetes, and lactic acidosis. ALLERGIES: None known. SOCIAL HISTORY: No history of illicit drug use or alcohol. MENTAL STATUS EXAMINATION: The patient is well developed and well nourished. His sleep not engaged nor unable to provide any history. Mood is neutral. Affect is constricted. Congruent mood. Thought process is disorganized. Thought content, no suicidal or homicidal ideation. No delusions. Insight and judgment is impaired. ASSESSMENT: [place] I Schizophrenia and delirium. [place] II Deferred. [place] III As above. [place] IV Low. [place] V Global assessment of functioning is 20. PLAN: 1. The patient will be started on olanzapine 2.5 mg h.s. 2. We will recommend limit the prescribing opiate pain medication, anxiolytics and other cholinergic medication as it may exacerbate the delirium. Jaret Garcia M.D. DR: EB JOB#: [id number] CC:
[2016-10-03] MEDS ORDERED: ASPIR 8181 MG ORAL (11:06)
[2016-10-03] MEDS ORDERED: LIPITOR10 MG ORAL (11:06)
[2016-10-03] MEDS ORDERED: KEPPRA500 MG ORAL (11:06)
--- NOTE | 2016-10-03 11:09 | Discharge Instructions ---
Discharge Instructions Discharge Instructions Follow up with: MD at the faciltiy Call MD/Return to Hospital if: uncontrolled BP, chest pain, SOB, ALOC Services at Discharge: day care Diet: diabetic calorie control, cardiac 2 GM Na, low fat Activity: resume normal activities, as tolerated Special Instructions repeat treatment with Permethrin on 10/05 ( initial done ion 09/28) For Congestive Heart Failure Reminder Report to your physician any weight gain of 5 pounds or more in one week. Dell (Naz Nolan NP Oct 03, 2016 11:09
--- NOTE | 2016-10-03 12:03 | Diagnostic Imaging Report ---
APPROVED REPORT CPT Code: 21493 Vascular Symptoms Syncope Comments: Difficult study due to the patient being restless. CAROTID (BILATERAL) - Imaging reveals no significant plaque within the right and left extracranial carotid arteries. The Doppler spectral flow analysis is within normal limits throughout the extracranial carotid arteries bilaterally. VERTEBRAL- The vertebral arteries are within normal limits.
--- NOTE | 2016-10-04 01:28 | Discharge Summary 2 SIG ---
DATE OF ADMISSION: 09/28/2016 DATE OF DISCHARGE: 10/02/2016 REASON FOR ADMISSION: 56-year-old male presented with altered level of consciousness, agitated, and combative at the senior care facility. The patient has an underlying history of schizophrenia and depression. There was no evidence of trauma or injury. Unknown if he had a seizure prior to presentation, No known history of seizures. Workup in emergency department revealed tachycardia. Blood pressure was elevated at 210/130. Pulse oximetry was stable on the room air. Elevated lactic acid of 9.0. No leukocytosis. Hemoglobin and hematocrit stable. Elevated anion gap of 27. BUN of 17 and creatinine 1.2. Glucose 234. CK 174. Troponin negative. ProBNP 163. Urinalysis, no evidence of urinary tract infection. EKG showed sinus tachycardia, no ischemic changes. Chest x-ray revealed no acute cardiopulmonary disease, no effusion or pneumothorax, and no consolidation. CT of the head revealed left frontoparietal old infarct, no acute changes. The patient was medicated with Ativan and Haldol x2 with improvement in his behavior and mood. At that time blood pressure subsided too without any intervention. The patient does have an underlying history of hypertension. At this point, the patient started on the IV fluids. Keppra was started for presumptive new onset of seizure disorder. The patient was treated for scabies and transferred to the floor for further management. ADMITTING DIAGNOSES: 1. Altered mental status. 2. Possible new onset of seizure. 3. Schizophrenia. 4. Hypertensive urgency. 5. Scabies. 6. Lactic acidosis, rule out sepsis. HOSPITAL COURSE: The patient was admitted to the floor. The patient was started on the IV fluids. Blood culture negative. Urinalysis negative, no evidence of infection. Neurology seen and evaluated the patient. Neurologist reviewed CT of the head and concluded that the patient had multiple predominantly left hemispheric strokes with some hemorrhagic component, but all old. He recommended to hold all sedation while the patient was lethargic until fully awake. Continue aspirin 81 mg as well as the statin and recommended psychiatric evaluation. Psychiatric evaluation subsequently was done. Psychiatrist diagnosed the patient with schizophrenia and delirium. She placed the patient on Zyprexa 2.5 mg. She also recommended to limit opiate pain medication, anxiolytic, and other cholinergic medication, since all these could exacerbate delirium. Supplemental oxygen and pulmonary toilet provided as needed. Blood pressure was managed with Clonidine and was stable. Carotid Doppler revealed no evidence of carotid artery disease. The patient was started on Keppra. Ammonia level stable. Lipid panel stable, started on statin. DVT prophylaxis provided. The patient status post treatment with permethrin and needs to repeat it in 7 days, which will be on 10/05/2016 at the senior care facility. Blood sugar was managed with sliding scale of insulin. The patient was working with PT and OT. Fall precaution maintained. The patient's sister who is the DPOA for the patient, requested to change status upon admission to DNR/DNI status, which subsequently was done. The patient was stable for transfer to the senior care facility. DISCHARGE DIAGNOSES: 1. Acute encephalopathy. 2. Possible new onset of seizure disorder. 3. Hypertensive urgency, resolved. 4. Schizophrenia. 5. History of multiple hemorrhagic strokes, probably with hypertensive angiopathy. 6. Scabies, status post treatment. 7. Lactic acidosis. 8. Diabetes mellitus. 9. Delirium DISCHARGE MEDICATIONS: See medication reconciliation list. DISCHARGE INSTRUCTIONS: The patient was discharged to the senior care facility. FOLLOWUP: Follow up with medical doctor at the facility. The patient DNR/DNI status now. The patient needs repeated treatment for scabies in 7 days after initial, which will be on 10/05/2016. Monitor for possible seizure activity. Seizure precautions. The patient was started on Keppra. Deni Amato M.D. Naz GarciaBurke Rehabilitation HospitalEliza N.PTevin DR: ARSEN JOB#: [id number] CC: VARUN
--- NOTE | 2016-10-05 02:28 | Electroencephalogram ---
DATE OF TEST: 09/29/2016 PROCEDURE PERFORMED: Electroencephalogram. HISTORY: This is a 56-year-old man with history of paroxysmal loss of consciousness possible seizure disorder. He is status post multiple hemorrhagic small strokes and has chronic schizophrenia. Current treatment includes Keppra. No sedation given prior to the study. TECHNIQUE: EEG was done using 18 electrodes placed scalp to scalp and scalp to ear montages according to 10/[employer]. Most wakeful portions of recording, background activity with the right hemisphere appears to be well regulated 7 to 8 cycles per second with left hemispheric slowing appearance of polymorphic delta activities left frontal central region, and left hemispheric slowing in range of 6 to 8 cycles per second, at times with reduction in amplitude. No paroxysmal activities noted. IMPRESSION: Abnormal EEG in presence of left hemispheric slowing with appearance of intermittent delta activities frontal central region. COMMENT: Above abnormality indicate a global cerebral dysfunction with left hemispheric structural lesion. Nonspecific toxic metabolic derangement also could be considered. Absence of paroxysmal event on a single recording does not rule out seizure disorder. Malcolm Wayne M.D. DR: LUDMILA JOB#: [id number] CC:
== END 2016-10-02 20:30 | disposition home or self-care (01) | DRG 52 ==
LOC: ENRESERVTM → ENRESERVDT → EDBD 13:40 → EMR 14:00 → 2E 15:20 → EDBEDREQ 17:37 → 2E 18:30 → 4E 09-30 08:20
DX: G93.40 Encephalopathy, unspecified (principal); E87.2 Acidosis; I16.0 Hypertensive urgency; B86 Scabies; F20.9 Schizophrenia, unspecified; E11.9 Type 2 diabetes mellitus without complications; Z86.73 Personal history of transient ischemic attack (TIA), and cerebral infarction without residual deficits; I99.8 Other disorder of circulatory system; R41.0 Disorientation, unspecified; G40.909 Epilepsy, unspecified, not intractable, without status epilepticus; Z66 Do not resuscitate
CPT/HCPCS: 36415; 70450; 71010; 80048; 80053; 80061; 80076; 80299; 81003; 82140; 82248; 82550; 82553; 82607; 82962; 83605; 83880; 84484; 85025; 87040; 87081; 93005; 93880; 95819; J1815